=== PATIENT | female | born 1970 | race Caucasian/White ===

== ENCOUNTER 2017-03-21 13:58 | Outpatient (CLI) | payer OTHER ==
--- NOTE | 2017-03-21 14:44 | DIAGNOSTIC IMAGING REPORT ---
PROCEDURE: MG BILATERAL SCREENING W/CAD INDICATION: Screening. Baseline. TECHNIQUE: Bilateral CC and MLO digital views. COMPARISON: None. FINDINGS: Computer-aided detection applied. Dense parenchymal pattern with a few dystrophic calcification. The 1.4 cm nodular density in the upper inner right breast (seen only on CC view, posterior third). IMPRESSION: 1. There is a 1.4 cm nodular density in the upper inner right breast (posterior third). While this may represent normal asymmetric parenchyma, underlying mass or cyst should also be considered. Further mammographic views (true lateral view, reverse MLO view, CC and MLO spot compression views) are recommended. In addition, right breast ultrasound is recommended. RESULT CODE: 0- Incomplete; needs additional evaluation. A. A negative report should not delay biopsy if a dominant or clinically suspicious mass is present. 10-15% of cancers are not identified by x-ray. B. A negative report may reinforce clinical impression. C. Adenosis and dense breasts may obscure an underlying neoplasm. D. False positive reports average 6-10%. E.. A yearly screening mammogram is recommended. A reminder letter will be scheduled.
== END 2017-03-21 23:00 ==
LOC: MAM SRH 13:58
DX: Z12.39 Encounter for other screening for malignant neoplasm of breast (principal)

== ENCOUNTER → 2017-04-20 | Outpatient (CLI) | payer OTHER ==
--- NOTE | 2017-04-20 15:21 | DIAGNOSTIC IMAGING REPORT ---
PROCEDURE: MG UNILATERAL DIAG-RT W/CAD INDICATION: EVALUATE DENSITY SEEN ON SCREENING TECHNIQUE: Spot compression mammographic views of the right breast in the CC and MLO projection. A direct lateral and lateral medial oblique right breast mammogram using CAD. The patient then went to ultrasound where meadows-scale and color Doppler sonographic imaging of the right breast was performed. COMPARISON: 03/21/2017 FINDINGS: Mammograms: Dense tissue with scattered fibroglandular elements. With focal spot compression of the medial right breast in the CC projection, a normal focus of glandular tissue is seen without a definite underlying density. In the oblique projection with spot compression, there is suggestion of 13 mm partially obscured cystic lesion close to the chest wall. No architectural distortion, or clustered microcalcification. Ultrasound: Dense fibrous tissue with numerous tiny cysts are present. In the one to two o'clock position, against the chest wall, there is an ill-defined cystic structure measuring about 10 mm in greatest diameter. There is good through transmission and no adjacent or internal vascularity. This is best seen in the anti-radial position. No definite solid mass. IMPRESSION: 1. Patchy dense fibrocystic tissue with a focal 10 mm probable cyst in the one to two o'clock position of the right breast again chest wall. The henderson are suboptimally seen, although there is good posterior acoustic enhancement. 2. 6-month follow-up right breast mammogram and ultrasound is recommended to ensure stability given suboptimal visualization of probable cystic structure. 3. Findings and recommendations were conveyed to the patient ([place]ian-speaking only) through her niece. RESULT CODE: 3- Probably benign. A. A negative report should not delay biopsy if a dominant or clinically suspicious mass is present. 10-15% of cancers are not identified by x-ray. B. A negative report may reinforce clinical impression. C. Adenosis and dense breasts may obscure an underlying neoplasm. D. False positive reports average 6-10%. E.. A yearly screening mammogram is recommended. A reminder letter will be scheduled.
== END ==
LOC: MAM SRH 03-28 08:58
PROC: BH00ZZZ Plain Radiography of Right Breast (ICD-10-PCS; principal; 2017-04-20)
DX: N63 Unspecified lump in breast (principal); R92.2 Inconclusive mammogram